=== PATIENT | female | born 1995 | race Caucasian/White ===

== ENCOUNTER 2024-09-22 17:46 | Outpatient (CLI) | payer OTHER | END 2024-09-22 18:45 | disposition home or self-care (01) | LOC: NST 17:46 | PROVIDERS: ATTEND Obstetrics & Gynecology | DX: Z34.83 Encounter for supervision of other normal pregnancy, third trimester (principal) ==

== ENCOUNTER 2024-09-27 08:44 | Outpatient (CLI) | payer OTHER ==
[~2024-09-27] VITALS: Ht 165.1 cm; Wt 81.6 kg
[2024-09-27 07:08] VITALS: BP 116/77
[2024-09-27] MEDS ORDERED: PRENATAL TABLE1 EAC4 PO (08:56)
[2024-09-27 15:10] VITALS: BP 138/87; O2SAT 99
[2024-09-27 19:24] VITALS: BP 131/78; O2SAT 98
[2024-09-27 23:08] VITALS: BP 137/80
[2024-09-28 03:32] VITALS: BP 126/80
[2024-09-28 06:44] VITALS: BP 112/68; O2SAT 98
[2024-09-28 09:08] VITALS: BP 112/68
== END 2024-09-28 09:43 | disposition home or self-care (01) ==
LOC: OBS/DEL 08:44
PROVIDERS: ATTEND Obstetrics & Gynecology
DX: O26.893 Other specified pregnancy related conditions, third trimester (principal); O46.93 Antepartum hemorrhage, unspecified, third trimester; Z3A.38 38 weeks gestation of pregnancy

== ENCOUNTER 2024-09-29 14:00 | Inpatient (IN) | payer OTHER ==
[~2024-09-29] VITALS: Ht 165.1 cm; Wt 81.6 kg
[~2024-09-29 14:00] MED LIST: PRENATAL TABLE1 EAC4 PO
[2024-10-03] VITALS (10 sets, daily range): BP systolic 118–154; BP diastolic 77–95
[2024-10-03] MEDS ORDERED: RINGERS SOLUTION,LACTATED 1,000 ML IV SCH (10:45)
[2024-10-03 11:09] LABS: HEMATOCRIT 35.1 % (36.0-45.00); HEMOGLOBIN 11.7 g/dL (12.0-15.00); MEAN CELL VOLUME 84.5 fL (80.00-100.00); MEAN CORPUSCULAR HEMOGLOBIN 28.1 pg (27.00-32.0); MEAN CORPUSCULAR HGB CONC 33.2 g/dl (32.0-36.0); PLATELET COUNT 248 K/uL (150-450); RED BLOOD COUNT 4.15 M/uL (4.00-6.00); RED CELL DISTRIBUTION WIDTH 16.5 % (11.5-14.5)
[2024-10-03 11:35] LABS: INR < 0.93; PARTIAL THROMBOPLASTIN TIME 28.8 SECONDS (22.0-34.0); PROTHROMBIN TIME 9.9 SECONDS (9.0-11.5)
[2024-10-03 12:17] LABS: ALBUMIN 2.5 gm/dL (3.4-5.0); BILIRUBIN TOTAL 0.19 mg/dL (0.3-1.2); CALCIUM 9.5 mg/dL (8.5-10.1); CREATININE SERUM 0.76 mg/dL (0.55-1.02); GFR 89.36; GLOBULINA 3.4 G/DL (2.4-3.5); POTASSIUM 4.61 mEq/L (3.5-5.1); TOTAL PROTEIN 5.9 gm/dL (6.4-8.2)
[2024-10-03] MEDS ORDERED: MORPHINE SULFATE 4 MG/ML VIAL IV STA (12:21)
[2024-10-03] MEDS ORDERED: OXYTOCIN 20 UNITS/500ML RL PIGGYBAG IV ONE (13:26)
[2024-10-03] MEDS ORDERED: OXYTOCIN 20 UNITS/500ML RL PIGGYBAG IV SCH (13:45)
[2024-10-03] MEDS ORDERED: ERYTHROMYCIN BASE OPHT 1GM EACH TUBE OP ONE ×2 (15:42→19:30)
[2024-10-03] MEDS ORDERED: CHLORHEXIDINE GLUCONATE 120 ML BOTTLE TOP ONE (15:42)
[2024-10-03] MEDS ORDERED: OXYTOCIN 20 UNITS/1000ML RL PIGGYBAG IV ONE (15:42)
[2024-10-03] MEDS ORDERED: LIDOCAINE HCL 1% 10ML VIAL ONE ×3 (15:43→15:44)
[2024-10-03] MEDS ORDERED: METHYLERGONOVINE MALEATE 0.2 MG/ML AMPUL ONE (18:00)
[2024-10-03] MEDS ORDERED: DOCUSATE SODIUM 100MG CAP PO SCH (18:32)
[2024-10-03] MEDS ORDERED: CEFOXITIN SODIUM 2,000 MG VIAL IV STA (18:32)
[2024-10-03] MEDS ORDERED: CHLORHEXIDINE GLUCONATE 120 ML BOTTLE TOP SCH (18:45)
[2024-10-03] MEDS ORDERED: OXYTOCIN 1,000 ML IV SCH (18:45)
[2024-10-03] MEDS ORDERED: METHYLERGONOVINE MALEATE 0.2 MG/ML AMPUL IM STA (19:20)
[2024-10-03] MEDS ORDERED: LIDOCAINE HCL 1% 10ML VIAL IJ ONE (19:30)
[2024-10-03] MEDS ORDERED: OxyCODONE HCL 5 MG TABLET (ROXICODONE) PO SCH (20:00)
[2024-10-03 23:29] LABS: HEMATOCRIT 34.3 % (36.0-45.00); MEAN CELL VOLUME 84.2 fL (80.00-100.00); MEAN CORPUSCULAR HGB CONC 33.1 g/dl (32.0-36.0); PLATELET COUNT 276 K/uL (150-450); RED BLOOD COUNT 4.08 M/uL (4.00-6.00); RED CELL DISTRIBUTION WIDTH 16.7 % (11.5-14.5)
[2024-10-03 23:41] LABS: HEMOGLOBIN 11.4 g/dL (12.0-15.00); MEAN CORPUSCULAR HEMOGLOBIN 27.9 pg (27.00-32.0)
[2024-10-04] MEDS ORDERED: KETOROLAC TROMETHAMINE 10 MG TABLET PO SCH
[2024-10-04 09:00] VITALS: BP 100/60
[2024-10-04 16:00] VITALS: BP 122/76
[2024-10-05 00:30] VITALS: BP 121/76
[2024-10-05 08:42] VITALS: BP 116/70
== END 2024-10-05 16:07 | disposition home or self-care (01) | DRG 807 ==
LOC: LDR 10-03 08:49 → OB/GYN 10-03 20:00
PROVIDERS: Obstetrics & Gynecology Maternal & Fetal Medicine; ADMIT Obstetrics & Gynecology; ATTEND Obstetrics & Gynecology
PROC: 10D07Z6 Extraction of Products of Conception, Vacuum, Via Natural or Artificial Opening (ICD-10-PCS; principal; 2024-10-03)
PROC: 0KQM0ZZ Repair Perineum Muscle, Open Approach (ICD-10-PCS; 2024-10-03)
PROC: 0W8NXZZ Division of Female Perineum, External Approach (ICD-10-PCS; 2024-10-03)
PROC: 3E033VJ Introduction of Other Hormone into Peripheral Vein, Percutaneous Approach (ICD-10-PCS; 2024-10-03)
PROC: 4A1HXCZ Monitoring of Products of Conception, Cardiac Rate, External Approach (ICD-10-PCS; 2024-10-03)
DX: O70.1 Second degree perineal laceration during delivery (principal); Z37.0 Single live birth; Z3A.39 39 weeks gestation of pregnancy; O66.5 Attempted application of vacuum extractor and forceps

== ENCOUNTER 2025-04-17 21:54 | Emergency (ER) | payer OTHER ==
[~2025-04-17] VITALS: Ht 165.1 cm; Wt 60.8 kg
[2025-04-17] MEDS ORDERED: FAMOTIDINE/PF 20 MG/2 ML VIAL IV ONE (22:45)
[2025-04-17] MEDS ORDERED: ONDANSETRON HCL 2 MG/ML VIAL IV ONE (22:45)
[2025-04-17] MEDS ORDERED: 0.9 % SODIUM CHLORIDE 1,000 ML IV SCH (22:45)
[2025-04-17] MEDS ORDERED: ONDANSETRON HCL 2 MG/ML VIAL ONE (23:24)
[2025-04-17] MEDS ORDERED: FAMOTIDINE/PF 20 MG/2 ML VIAL ONE (23:24)
[2025-04-18 00:41] LABS: BASO % 0.2 % (0.1-1.2); EOS # 0.13 (0.04-0.54); EOS % 1.4 % (0.7-7.0); LYMPH # 0.32 (1.18-3.74); LYMPH % 3.4 % (19.3-53.1); MEAN PLATELET VOLUME 9.00 fl (9.4-12.4); MONO # 0.33 (0.24-0.82); MONO % 3.5 % (4.7-12.5); NEUT # 8.70 (1.56-6.13); NEUT % 91.3 % (34.0-71.1); RED CELL DISTRIBUTION WIDTH 12.5 % (11.6-14.4)
[2025-04-18 00:55] LABS: ALT/SGPT 20.0 U/L (12-78); AST/SGOT 12.0 U/L (15-37); BILIRUBIN TOTAL 0.33 mg/dL (0.3-1.2); BUN CREA RATIO 27.0 (7.0-25.0); CREATININE SERUM 0.64 mg/dL (0.55-1.02); GFR 108.96; GLOBULINA 3.5 G/DL (2.4-3.5); GLUCOSE FASTING 137.0 mg/dL (65-100); OSMOLALITY SERUM 283.0 MOSM/KG (275-295)
[2025-04-18] MEDS ORDERED: KETOROLAC TROMETHAMINE 30 MG VIAL IV ONE (02:00)
[2025-04-18 02:13] LABS: COVID-19 AG NEGATIVE (NEGATIVE)
[2025-04-18 02:21] LABS: URINE APPEARANCE Clear; URINE BILIRRUBIN Negative (NEGATIVE); URINE BLOOD Negative; URINE COLOR Yellow; URINE GLUCOSE Negative (NEGATIVE); URINE KETONE Trace (NEGATIVE); URINE LEUKOCYTE Negative; URINE NITRATE Negative; URINE PROTEIN Trace (NEGATIVE); URINE UROBILINOGEN 0.2 E.U./dl
[2025-04-18 02:25] LABS: URINE BACTERIA 219.6 uL (0.0-1933); URINE EPITHELIAL CELLS 7.6 uL (0.0-38.8); URINE RBC 7.7 uL (0.0-20.8); URINE WBC 9.9 uL (0.0-23.2)
[2025-04-18 02:39] LABS: URINE CAST 0.00 uL (0.0-1.40)
[2025-04-18] MEDS ORDERED: KETOROLAC TROMETHAMINE 30 MG VIAL ONE (02:47)
[2025-04-18] MEDS ORDERED: ONDANSETRON ODT4 MG PO (05:41)
[2025-04-18] MEDS ORDERED: PEPCID20 MG PO (05:41)
[2025-04-18] MEDS ORDERED: INTESTINEX680 M1 PO (05:41)
== END 2025-04-18 06:37 | disposition home or self-care (01) ==
LOC: ER 21:55
PROVIDERS: Student in an Organized Health Care Education/Training Program
DX: B34.9 Viral infection, unspecified (principal); K52.89 Other specified noninfective gastroenteritis and colitis; E86.0 Dehydration; Z20.822 Contact with and (suspected) exposure to COVID-19